=== PATIENT | female | born 1975 | race African-American/Black ===

== ENCOUNTER 2017-04-21 16:50 | Emergency (ER) | payer OTHER ==
[~2017-04-21] VITALS: Ht 157.5 cm; Wt 127.0 kg
[2017-04-21] MEDS ORDERED: ANTIVERT25 MG PO (17:52)
[2017-04-21 18:04] VITALS: BP 190/113
== END 2017-04-21 18:05 | disposition home or self-care (01) ==
LOC: ER 16:50
DX: H81.399 Other peripheral vertigo, unspecified ear (principal); E66.9 Obesity, unspecified; Z68.43 Body mass index [BMI] 50.0-59.9, adult